=== PATIENT | female | born 1990 | race Caucasian/White ===

== ENCOUNTER 2023-04-18 19:25 | Inpatient (IN) ==
[2023-04-18] MEDS ORDERED: LORazepam 1 MG TAB SL ONE (19:50)
[2023-04-18 20:02] LABS: Appearance Urine Clear (Clear); Bacteria Urine Automated Negative (Negative); Bilirubin Urine Negative (Negative); Blood Urine 1+ (Negative); Cast Urine Automated 0 /lpf (0-5); Color Urine Yellow; Glucose Urine UA Negative (Negative); Ketones Urine Negative (Negative); Leukocyte Esterase Urine Negative (Negative); Nitrite Urine Negative (Negative); Protein Urine Negative (Negative); Specific Gravity Urine 1.007 (1.000-1.030); Urobilinogen Urine Negative (Negative); WBC Urine Automated 0 /hpf (0-5); pH Urine 6.5 (4.5-7.5)
[2023-04-18 20:06] LABS: Basophils # (auto) 0.04 K/uL (0.00-0.20); Basophils % (auto) 0.5 %; Eosinophils # (auto) 0.08 K/uL (0.00-0.50); Hematocrit (blood only) 38.6 % (37.0-47.0); Hemoglobin 13.8 g/dl (12.0-16.0); Immature Granulocytes # (auto) 0.02 K/uL (0.01-0.20); Immature Granulocytes % (auto) 0.2 %; Lymphocytes # (auto) 1.87 K/uL (1.20-3.40); Lymphocytes % (auto) 23.3 %; Mean Corpuscular Hemoglobin 31.2 pg (25.0-34.0); Mean Corpuscular Hgb Conc 35.8 g/dL (32.0-36.0); Mean Corpuscular Volume 87.1 fL (80.0-100.0); Mean Platelet Volume 9.5 fL (9.4-12.4); Monocytes # (auto) 0.53 K/uL (0.11-0.59); Monocytes % (auto) 6.6 %; Neutrophils # (auto) 5.49 K/uL (1.40-6.50); Neutrophils % (auto) 68.4 %; Platelet Count 223 K/uL (130-400); RDW Coefficient of Variation 11.9 % (11.5-14.5); RDW Standard Deviation 38.5 fL (36.4-46.3); Red Blood Count 4.43 M/uL (4.20-5.40); White Blood Count 8.03 K/ul (4.8-10.8)
[2023-04-18 20:24] LABS: Alanine Aminotransferase 10 U/L (7-52); Albumin Globulin Ratio 1.7 (0.9-2); Albumin Level 4.7 gm/dl (3.4-5.0); Alkaline Phosphatase 61 U/L (34-104); Anion Gap 9 (3-11); Aspartate Aminotransferase 14 U/L (13-39); Bilirubin,Total 0.4 mg/dl (0.2-1.0); Blood Urea Nitrogen 7 mg/dl (6-23); Calcium 9.2 mg/dl (8.6-10.3); Carbon Dioxide 26 mmol/L (21-32); Chloride 104 mmol/L (98-107); Est GFR (African American) 148.4 ml/min; Est GFR (Non-African American) 128.1 ml/min; Globulin 2.8 gm/dl (2.5-4.0); Glucose 91 mg/dl (70-99(Fasting)); Magnesium 1.9 mg/dl (1.7-2.4); Potassium 3.5 mmol/L (3.5-5.1); Sodium 139 mmol/L (136-145); Total Protein 7.5 gm/dl (6.0-8.3)
--- NOTE | 2023-04-18 20:33 | Emergency Department Note ---
Impression & Plan Involuntary jerky movements, Word finding difficulty ED Provider Note NAME: HARDEEP HAYDEN AGE: 32 SEX: Female INFORMANT: Patient ED PROVIDER(S): Tesfaye Gillis MD CHIEF COMPLAINT: Twitching and difficulty with word finding PLAN: Disposition: Admitted Outpatient prescription management: none Referral: None MEDICAL DECISION MAKING: Patient return back to emergency department due to continued symptoms. Neurology consultation performed last night recommended MRI and admission consultation. Patient initially was in agreement but then due to family obligations she left. Due to the persistence of symptoms she returned. Workup was started again. Physical examination has not changed since yesterday. She is still having difficulty with word finding. MR imaging ordered. Basic blood work ordered. CBC was unremarkable. Discussed the patient's presentation back to the emergency department with neurology, Dr. Ma. He recommended pursuing with the MRI again and will be available for consultation. Consultation was made with Dr. Yandel Cabrales of the [facility] service. Patient was evaluated in the ER for further management. Care/management discussed with: load manager Level of care consideration(s): After review of the information above and other included data, I feel the patient escalation of care to admission in order to complete workup previously recommended by neurology Triage Nursing notes: reviewed and agree them. Vital Signs: reviewed and remarkable for no significant abnormalities Additional History obtained from: none Chronic Medical/Social Conditions affecting care: none Prior/ Outside/ External records reviewed: none Differential Diagnosis: CVA, neurologic, toxicologic, infection, dehydration, metabolic abnormality, hypo/hyperglycemia, electrolyte disturbance, anemia, hypoxia, cardiac sources, intracerebral event, as well as other pathologies. Diagnostics, independently interpreted by me: EC Lead ECG performed and revealed Normal sinus rhythm at 83, normal [place], QRS normal. No elevation or depression. No PACs or PVCs Cardiac Monitoring: Cardiac monitoring ordered by me: The patient was placed on continuous cardiac monitoring and observed. It revealed a normal sinus rhythm at 91 beats per minute without ectopy or evidence of dysrhythmia. Medical decision rules: none Imaging studies: MR imaging did not reveal any evidence of stroke or demyelinating issue. I refer you to the EMR for further details. HPI: 32 year old Female arrives for evaluation of persistent difficulty with word finding and involuntary twitching. Patient was seen yesterday for the same. Neurology was consulted and admission for MRI and neurology consultation was advised. Patient initially was in agreement but then due to family obligations declined admission. She was advised to return at any time or to follow-up with her PCP on Thursday. Patient's symptoms persisted and she wanted to come back and follow through with recommendations. She notes difficulty with word finding that has persisted. She had the initial episode for about an hour 2 nights ago and that resolved. Her symptoms were present most of the day yesterday, throughout the night and today. No prior history of the same. She feels generally weak. Patient denies any trauma or pain. Pt denies LOC, headache, fevers, chills, diaphoresis, visual changes, neck pain, chest pain, breathing difficulties, nausea, vomiting, abdominal pain, back pain, melena, hematochezia, urinary symptoms, numbness, lymphadenopathy, rash, or other complaints. PAST MEDICAL HISTORY: See Below, PAST SURGICAL HISTORY: See Below, SOCIAL HISTORY: See Below, smoker HOME MEDICATIONS: See Below ALLERGIES: See Below VITALS: See Below PHYSICAL EXAMINATION: GENERAL: Awake, alert, well-appearing, in no distress HENT: Normocephalic, atraumatic. Oropharynx unremarkable. EYES: Normal conjunctiva. Sclera non-icteric. PERRLA. EOMI. NECK: Inspection normal. Non-tender. Supple. No nuchal rigidity. FROM. No masses. RESPIRATORY: Clear to auscultation. No wheezes. No rales. Normal respiratory effort. CARDIAC: Normal rate. Normal rhythm. No murmurs. No rubs. Extremities warm and well perfused. Pulses equal. No JVD. GI: Soft, non-distended. No tenderness to palpation. No rebound or guarding. No masses. RECTAL: Deferred. MUSCULOSKELETAL: Atraumatic. Chest examination reveals no tenderness. The back is symmetrical on inspection without obvious abnormality. There is no CVA tenderness to palpation. No joint edema. LOWER EXTREMITIES: Calves are equal size bilaterally and non-tender. No edema. No discoloration. NEURO: Normal sensorium. No focal sensory or motor deficits noted. Cranial nerves II through XII intact. Patient does have some difficulty with word finding. Sporadic jerking movements of the upper and lower extremities are present. No drift. SKIN: No rash or jaundice noted. PROCEDURES: none CRITICAL CARE: none OBSERVATION NOTE: none Past Med/Surg History Social History (Reviewed 04/05/23 @ 20:51 by GUSTAVO Briones Smoking Status: Smoker, status unknown Tobacco Type: Cigarettes Tobacco Cessation Education Requested by Patient: No Hx Alcohol Use: No Hx Substance Use: Yes Last Used Substance Other:: medical marijuana Preferred Language: Swedish Communication Ability: Effective Titrator Required: No Beliefs That Will Affect Care: None Current Living Situation: Spouse and Family Current Living Situation Comment: lives in apt with and 2 children Other Information That Helps Us Care for You: No Feels Safe at Home: Yes Assistive Devices: None Allergies Allergies Allergy/AdvReac Type Severity Reaction Status Date / Time bee venom protein (honey bee) Allergy Severe ANAPHYLAXIS Verified 04/18/23 20:36 Home Meds Home Medications Medication Instructions Recorded Confirmed Medical Marijuana 1 dose inhalation DIRECTED PRN 04/18/23 04/18/23 NEEDED PER PT. Results & Data (ED) Vital Signs Vital Signs - 24 hr 04/18/23 19:28 04/18/23 19:53 04/18/23 19:54 Temperature 36.5 C Temperature Source Temporal Artery Scan Pulse Rate 114 H 94 H Respiratory Rate 18 Respiratory Effort / Characteristics Non-Labored Spontaneous Respiratory Depth Normal Blood Pressure 121/83 Blood Pressure Mean 95 Pulse Oximetry 100 98 Oxygen Delivery Method Room Air Room Air Sepsis Recent Fever Within 48 Hours No Sepsis New/Unexplained Change in Mental Status No Sepsis Action Taken by Nursing No Action Required 04/18/23 20:00 04/18/23 20:30 Temperature Temperature Source Pulse Rate 91 H 79 Respiratory Rate 22 24 Respiratory Effort / Characteristics Respiratory Depth Blood Pressure 111/86 121/71 Blood Pressure Mean 94 87 Pulse Oximetry 95 97 Oxygen Delivery Method Sepsis Recent Fever Within 48 Hours Sepsis New/Unexplained Change in Mental Status Sepsis Action Taken by Nursing Laboratory Data 04/18/23 19:45 04/18/23 19:45 Lab Results 04/18/23 04/18/23 Range/Units 19:45 19:47 WBC 8.03 (4.8-10.8) K/ul RBC 4.43 (4.20-5.40) M/uL Hgb 13.8 (12.0-16.0) g/dl Hct 38.6 (37.0-47.0) % MCV 87.1 (80.0-100.0) fL MCH 31.2 (25.0-34.0) pg MCHC 35.8 (32.0-36.0) g/dL RDW Std Deviation 38.5 (36.4-46.3) fL RDW Coeff of Kalia 11.9 (11.5-14.5) % Plt Count 223 (130-400) K/uL MPV 9.5 (9.4-12.4) fL Immature Gran % (Auto) 0.2 % Neut % (Auto) 68.4 % Lymph % (Auto) 23.3 % [place] % (Auto) 6.6 % Eos % (Auto) 1.0 % Baso % (Auto) 0.5 % Neut # (Auto) 5.49 (1.40-6.50) K/uL Lymph # (Auto) 1.87 (1.20-3.40) K/uL [place] # (Auto) 0.53 (0.11-0.59) K/uL Eos # (Auto) 0.08 (0.00-0.50) K/uL Baso # (Auto) 0.04 (0.00-0.20) K/uL Immature Gran # (Auto) 0.02 (0.01-0.20) K/uL ESR 5 (0-20) mm/hr Sodium 139 (136-145) mmol/L Potassium 3.5 (3.5-5.1) mmol/L Chloride 104 (98-107) mmol/L Carbon Dioxide 26 (21-32) mmol/L Anion Gap 9 (3-11) BUN 7 (6-23) mg/dl Creatinine 0.50 L (0.6-1.2) mg/dl Est Cr Clr Drug Dosing 140.0 ml/min Est GFR ( Amer) 148.4 ml/min Est GFR (Non-Af Amer) 128.1 ml/min BUN/Creatinine Ratio 14.0 (10-20) Glucose 91 (70-99(Fasting)) mg/dl POC Glucose 103 H (70-99) mg/dl Calcium 9.2 (8.6-10.3) mg/dl Magnesium 1.9 (1.7-2.4) mg/dl Total Bilirubin 0.4 (0.2-1.0) mg/dl AST 14 (13-39) U/L ALT 10 (7-52) U/L Alkaline Phosphatase 61 (34-104) U/L Total Creatine Kinase 75 (26-192) U/L C-Reactive Protein < 0.50 (0-0.5) mg/dl Total Protein 7.5 (6.0-8.3) gm/dl Albumin 4.7 (3.4-5.0) gm/dl Globulin 2.8 (2.5-4.0) gm/dl Albumin/Globulin Ratio 1.7 (0.9-2) Vitamin B12 635 (180-914) pg/ml Folate > 22.30 (>5.38) ng/ml TSH 1.097 (0.300-4.500) uIu/ml Urine Color Yellow Urine Appearance Clear (Clear) Urine pH 6.5 (4.5-7.5) Ur Specific [place] 1.007 (1.000-1.030) Urine Protein Negative (Negative) Urine Glucose (UA) Negative (Negative) Urine Ketones Negative (Negative) Urine Blood 1+ H (Negative) Urine Nitrite Negative (Negative) Urine Bilirubin Negative (Negative) Urine Urobilinogen Negative (Negative) Ur Leukocyte Esterase Negative (Negative) Urine WBC (Auto) 0 (0-5) /hpf Urine RBC (Auto) 5-10 H (0-4) /hpf U Hyaline Cast (Auto) 0 (0-5) /lpf U Epithel Cells (Auto) 5-10 H (0-5) /lpf Urine Bacteria (Auto) Negative (Negative) Administered Medications Potassium Chloride/Sodium Chloride (Normal Saline W/20 Meq Kcl) 20 meq in 1,000 mls @ 80 mls/hr IV .[id number] [facility] Stop: 04/19/23 12:04 Last Admin: 04/19/23 00:42 Dose: 80 mls/hr Documented By: ROOPA Discontinued Medications Gadobutrol (Gadobutrol 7.5ml Vial) 6 ml IV ONCE ONE Stop: 04/18/23 21:44 Last Admin: 04/18/23 21:43 Dose: 6 ml Documented By: ALEXIA Thiamine HCl 100 mg/ Syringe 10 mls @ 2 mls/min IV NOW STA Stop: 04/18/23 23:44 Last Admin: 04/19/23 00:43 Dose: 2 mls/min Documented By: ROOPA Folic Acid 1 mg/ Syringe 10 mls @ 5 mls/min IV NOW STA Stop: 04/18/23 23:41 Last Admin: 04/19/23 00:43 Dose: 5 mls/min Documented By: ROOPA Lorazepam (Lorazepam 1 Mg Tab) 1 mg SL PRN ONE Stop: 04/18/23 19:51 Last Admin: 04/18/23 19:57 Dose: 1 mg Documented By: ANGELITA Imaging Data Radiologist's Impression: Brain MRI 04/18/23 19:38 MRI OF THE BRAIN COMBO CLINICAL HISTORY: Strokelike symptoms. Weakness. Speech difficulty. COMPARISON STUDY: CT of the brain dated 04/17/2023. TECHNIQUE: MRI of the brain was performed utilizing various T1 and T2-weighted sequences in the axial, sagittal, and coronal planes. Contrast-enhanced sequences were acquired following the administration of 6 cc of Gadavist. FINDINGS: Brain parenchyma: The brain parenchyma is normal in appearance. There is no hemorrhage or mass effect. There is no restricted diffusion to suggest acute ischemia. No enhancing mass lesion is identified on the postcontrast images. Ochoa-white matter differentiation is preserved. No extra-axial fluid collection is seen. The cerebellar tonsils are normal in configuration. Ventricles, sulci, and cisterns: Normal in configuration. Pituitary and sella: Unremarkable. Intracranial vasculature: Normal flow voids are maintained at the skull base. Orbits: The bony orbits are grossly intact. Orbital contents are normal in appearance. Sinuses and mastoids: Clear. Calvarium: Unremarkable. Cervical cord: Partially visualized cervical spinal cord is normal in morphology and signal intensity. IMPRESSION: No acute intracranial abnormality. ACT 112: Negative or not required by law. Electronically signed by: Vitor Parrish M.D. 04/18/2023 10:02 PM Discharge Plan Visit Data Chief Complaint: Neuro Symptoms/Deficit Stated Complaint: DELAYED SPEECH, TWITCHING ED Provider: Tesfaye Gillis Discharge Problem: Involuntary jerky movements, Word finding difficulty Patient Disposition: Admitted As Inpatient Discharge Instructions Interventions: ED Discharge Assessment Last Done: 04/18/23 23:00
[2023-04-18 20:38] LABS: Thyroid Stimulating Hormone 1.097 uIu/ml (0.300-4.500)
[2023-04-18 21:34] LABS: C Reactive Protein < 0.50 mg/dl (0-0.5); Creatine Kinase 75 U/L (26-192)
[2023-04-18] MEDS ORDERED: GADOBUTROL 7.5ML VIAL IV ONE (21:43)
--- NOTE | 2023-04-18 21:49 | History & Physical Report ---
Date of Service April 18, 2023 Assessment & Plan (1) Word finding difficulty: (2) Involuntary jerky movements: (3) Exposure to environmental hazard: Plan Unexplained neurologic symptoms/word finding difficulty/involuntary jerking movements/memory loss- The patient was initially seen in the emergency department on 04/17/2023, and had workup including CT head, CTA head/ neck, all of which were negative. MRI brain today with and without contrast was negative Urinalysis is negative BioFire yesterday was negative Lyme test yesterday was negative B12, folate and thyroid testing today is normal TADEO is pending Thiamine is pending Of note, urine drug screen yesterday was positive for marijuana, which patient reports she takes medical marijuana The patient will be admitted to telemetry for cardiac rhythm monitoring Neurochecks every 4 hours Patient reports exposure to black mold in her living quarters, which could explain her neurologic symptoms NSS + KCl 20 MEQ's at 80 mL/h Will likely need EEG and/or LP Admit as above, and consult neurology History of Present Illness Chief Complaint: The patient presents to the emergency department with complaint of 1-1/2 hours of muscle spasms and jerking and difficulty with talking that began 8:30 PM 2 nights ago. She reports that she felt somewhat improved later that evening, however the next day, yesterday, her symptoms returned and continue to worsen. She notes today that her memory has been getting worse. She has concerns regarding exposure to black mold where she lives, which is presently being cleaned out by her landlord. She denies any recent travels or other sick exposures. Primary Care Provider: NO PCP The patient is a 32-year-old female with no significant past medical history, who presents to the emergency department with symptoms as noted above. The patient reports symptoms of muscle jerking uncontrollably, difficulty with speech, slowed and slurred speech, and worsening memory function. Neurology recommends patient have MRI of brain, and be admitted for further workup. Allergies Allergy/AdvReac Type Severity Reaction Status Date / Time bee venom protein (honey bee) Allergy Severe ANAPHYLAXIS Verified 04/18/23 20:36 Home Medications Medication Instructions Recorded Confirmed Type Medical Marijuana 1 dose inhalation DIRECTED PRN 04/18/23 04/18/23 History NEEDED PER PT. Past Med/Surg History Social History Smoking Status: Current every day smoker Tobacco Type: Cigarettes Preferred Language: Slovak Feels Safe at Home: Yes Review of Systems Review of Systems: The patient denies chest pain, palpitations, shortness of breath, dyspnea on exertion, cough, lower extremity swelling, sore throat, fevers, chills, sweats, weight change, fatigue, nausea, vomiting, diarrhea , constipation, abdominal pain, pelvic pain, blood in urine or stool, dysuria, urinary frequency or urgency, lightheadedness, dizziness, loss of consciousness, rash, abnormal bruising or bleeding, focal weakness, numbness or tingling in arms or legs, back or neck pain, or night sweats. The review of systems is otherwise negative other than for that already noted above, and at least 10 systems have been reviewed. Physical Exam Physical Exam: The patient is awake, alert and oriented 3, speech is slowed and slightly slurred. normocephalic and atraumatic, lying in bed and in no acute distress. HEENT--PERRL, EOMI, mucous membranes and oropharynx mildly dry. Neck--supple. No JVD. No bruits. Thyroid normal, trachea midline, no adenopathy. Heart--normal S1 and S2. No murmurs, rubs or gallops. Lungs--clear bilaterally, no respiratory distress, no accessory muscle use. Abdomen--normal bowel sounds and soft. Nontender. Nondistended, no hernias or masses, no organomegaly. Extremities--no cyanosis or clubbing. No edema. There are good distal pulses b/l. Dermatologic--normal skin turgor, normal color, no abnormal lymph nodes, no rash. Neurologic--cranial nerves II through XII grossly intact. Rheumatologic--normal range of motion. Psychiatric--normal affect. Results & Data Results & Data Vital Signs (Past 12 Hours) Vital Signs Temp Pulse Resp BP Pulse Ox O2 Del Method 04/18/23 20:30 79 24 121/71 97 04/18/23 20:00 91 H 22 111/86 95 04/18/23 19:54 94 H 04/18/23 19:53 98 Room Air 04/18/23 19:28 36.5 C 114 H 18 121/83 100 Room Air Laboratory Results Laboratory Results WBC 8.03 K/ul (4.8-10.8) 04/18/23 19:45 RBC 4.43 M/uL (4.20-5.40) 04/18/23 19:45 Hgb 13.8 g/dl (12.0-16.0) 04/18/23 19:45 Hct 38.6 % (37.0-47.0) 04/18/23 19:45 MCV 87.1 fL (80.0-100.0) 04/18/23 19:45 MCH 31.2 pg (25.0-34.0) 04/18/23 19:45 MCHC 35.8 g/dL (32.0-36.0) 04/18/23 19:45 RDW Std Deviation 38.5 fL (36.4-46.3) 04/18/23 19:45 RDW Coeff of Kalia 11.9 % (11.5-14.5) 04/18/23 19:45 Plt Count 223 K/uL (130-400) 04/18/23 19:45 MPV 9.5 fL (9.4-12.4) 04/18/23 19:45 Immature Gran % (Auto) 0.2 % 04/18/23 19:45 Neut % (Auto) 68.4 % 04/18/23 19:45 Lymph % (Auto) 23.3 % 04/18/23 19:45 [place] % (Auto) 6.6 % 04/18/23 19:45 Eos % (Auto) 1.0 % 04/18/23 19:45 Baso % (Auto) 0.5 % 04/18/23 19:45 Neut # (Auto) 5.49 K/uL (1.40-6.50) 04/18/23 19:45 Lymph # (Auto) 1.87 K/uL (1.20-3.40) 04/18/23 19:45 [place] # (Auto) 0.53 K/uL (0.11-0.59) 04/18/23 19:45 Eos # (Auto) 0.08 K/uL (0.00-0.50) 04/18/23 19:45 Baso # (Auto) 0.04 K/uL (0.00-0.20) 04/18/23 19:45 Immature Gran # (Auto) 0.02 K/uL (0.01-0.20) 04/18/23 19:45 ESR 5 mm/hr (0-20) 04/18/23 19:45 Sodium 139 mmol/L (136-145) 04/18/23 19:45 Potassium 3.5 mmol/L (3.5-5.1) 04/18/23 19:45 Chloride 104 mmol/L (98-107) 04/18/23 19:45 Carbon Dioxide 26 mmol/L (21-32) 04/18/23 19:45 Anion Gap 9 (3-11) 04/18/23 19:45 BUN 7 mg/dl (6-23) 04/18/23 19:45 Creatinine 0.50 mg/dl (0.6-1.2) L 04/18/23 19:45 Est Cr Clr Drug Dosing 140.0 ml/min 04/18/23 19:45 Est GFR ( Amer) 148.4 ml/min 04/18/23 19:45 Est GFR (Non-Af Amer) 128.1 ml/min 04/18/23 19:45 BUN/Creatinine Ratio 14.0 (10-20) 04/18/23 19:45 Glucose 91 mg/dl (70-99(Fasting)) 04/18/23 19:45 POC Glucose 103 mg/dl (70-99) H 04/18/23 19:47 Calcium 9.2 mg/dl (8.6-10.3) 04/18/23 19:45 Magnesium 1.9 mg/dl (1.7-2.4) 04/18/23 19:45 Total Bilirubin 0.4 mg/dl (0.2-1.0) 04/18/23 19:45 AST 14 U/L (13-39) 04/18/23 19:45 ALT 10 U/L (7-52) 04/18/23 19:45 Alkaline Phosphatase 61 U/L (34-104) 04/18/23 19:45 Total Creatine Kinase 75 U/L (26-192) 04/18/23 19:45 C-Reactive Protein < 0.50 mg/dl (0-0.5) 04/18/23 19:45 Total Protein 7.5 gm/dl (6.0-8.3) 04/18/23 19:45 Albumin 4.7 gm/dl (3.4-5.0) 04/18/23 19:45 Globulin 2.8 gm/dl (2.5-4.0) 04/18/23 19:45 Albumin/Globulin Ratio 1.7 (0.9-2) 04/18/23 19:45 Vitamin B12 635 pg/ml (180-914) 04/18/23 19:45 Folate > 22.30 ng/ml (>5.38) 04/18/23 19:45 TSH 1.097 uIu/ml (0.300-4.500) 04/18/23 19:45 Urine Color Yellow 04/18/23 19:45 Urine Appearance Clear (Clear) 04/18/23 19:45 Urine pH 6.5 (4.5-7.5) 04/18/23 19:45 Ur Specific [place] 1.007 (1.000-1.030) 04/18/23 19:45 Urine Protein Negative (Negative) 04/18/23 19:45 Urine Glucose (UA) Negative (Negative) 04/18/23 19:45 Urine Ketones Negative (Negative) 04/18/23 19:45 Urine Blood 1+ (Negative) H 04/18/23 19:45 Urine Nitrite Negative (Negative) 04/18/23 19:45 Urine Bilirubin Negative (Negative) 04/18/23 19:45 Urine Urobilinogen Negative (Negative) 04/18/23 19:45 Ur Leukocyte Esterase Negative (Negative) 04/18/23 19:45 Urine WBC (Auto) 0 /hpf (0-5) 04/18/23 19:45 Urine RBC (Auto) 5-10 /hpf (0-4) H 04/18/23 19:45 U Hyaline Cast (Auto) 0 /lpf (0-5) 04/18/23 19:45 U Epithel Cells (Auto) 5-10 /lpf (0-5) H 04/18/23 19:45 Urine Bacteria (Auto) Negative (Negative) 04/18/23 19:45 Impressions Brain MRI 04/18/23 19:38 MRI OF THE BRAIN COMBO CLINICAL HISTORY: Strokelike symptoms. Weakness. Speech difficulty. COMPARISON STUDY: CT of the brain dated 04/17/2023. TECHNIQUE: MRI of the brain was performed utilizing various T1 and T2-weighted sequences in the axial, sagittal, and coronal planes. Contrast-enhanced sequences were acquired following the administration of 6 cc of Gadavist. FINDINGS: Brain parenchyma: The brain parenchyma is normal in appearance. There is no hemorrhage or mass effect. There is no restricted diffusion to suggest acute ischemia. No enhancing mass lesion is identified on the postcontrast images. Ochoa-white matter differentiation is preserved. No extra-axial fluid collection is seen. The cerebellar tonsils are normal in configuration. Ventricles, sulci, and cisterns: Normal in configuration. Pituitary and sella: Unremarkable. Intracranial vasculature: Normal flow voids are maintained at the skull base. Orbits: The bony orbits are grossly intact. Orbital contents are normal in appearance. Sinuses and mastoids: Clear. Calvarium: Unremarkable. Cervical cord: Partially visualized cervical spinal cord is normal in morphology and signal intensity. IMPRESSION: No acute intracranial abnormality. ACT 112: Negative or not required by law. Electronically signed by: Vitor Parrish M.D. 04/18/2023 10:02 PM Code Status & VTE Plan Code Status Full code VTE Prophylaxis Plan VTE Prophylaxis will be ordered: Yes PG Care Time/CCT Total # of Minutes Spent Total Time Spent with Patient: Total time spent is greater than 50% in coordination of care (as documented) at patient's floor/unit and/or counseling patient: Coding Level of Care Code 09567 INT INP/OBS CARE 3/75MIN Diagnoses Word finding difficulty R47.89 Involuntary jerky movements R25.8 Exposure to environmental hazard Z77.128
[2023-04-18 21:53] LABS: Folate (Folic Acid),Ser orPlas > 22.30 ng/ml (>5.38)
[2023-04-18 21:54] LABS: Vitamin B12 635 pg/ml (180-914)
--- NOTE | 2023-04-18 22:04 | Magnetic Resonance Report ---
MRI OF THE BRAIN COMBO CLINICAL HISTORY: Strokelike symptoms. Weakness. Speech difficulty. COMPARISON STUDY: CT of the brain dated 04/17/2023. TECHNIQUE: MRI of the brain was performed utilizing various T1 and T2-weighted sequences in the axial , sagittal, and coronal planes. Contrast-enhanced sequences were acquired following the administratio n of 6 cc of Gadavist. FINDINGS: Brain parenchyma: The brain parenchyma is normal in appearance. There is no hemorrhage or mass effect . There is no restricted diffusion to suggest acute ischemia. No enhancing mass lesion is identified on the postcontrast images. Ochoa-white matter differentiation is preserved. No extra-axial fluid ana ection is seen. The cerebellar tonsils are normal in configuration. Ventricles, sulci, and cisterns: Normal in configuration. Pituitary and sella: Unremarkable. Intracranial vasculature: Normal flow voids are maintained at the skull base. Orbits: The bony orbits are grossly intact. Orbital contents are normal in appearance. Sinuses and mastoids: Clear. Calvarium: Unremarkable. Cervical cord: Partially visualized cervical spinal cord is normal in morphology and signal intensity . IMPRESSION: No acute intracranial abnormality. ACT 112: Negative or not required by law. Electronically signed by: Vitor Parrish M.D. 04/18/2023 10:02 PM
[2023-04-18] MEDS ORDERED: ONDANSETRON INJ 2 MG/ML 2 ML VIAL IV PRN (23:35)
[2023-04-18] MEDS ORDERED: ACETAMINOPHEN 325 MG TAB PO PRN (23:35)
[2023-04-18] MEDS ORDERED: NSS + 20MEQ KCL 20 MEQ/1,000 ML BAG IV SCH (23:35)
[2023-04-18] MEDS ORDERED: THIAMINE HCL 100 MG in SYRINGE 9 ML IV STA (23:40)
[2023-04-18] MEDS ORDERED: FOLIC ACID 1 MG in SYRINGE 9.8 ML IV STA (23:40)
[2023-04-19 07:22] LABS: Basophils # (auto) 0.06 K/uL (0.00-0.20); Eosinophils # (auto) 0.16 K/uL (0.00-0.50); Eosinophils % (auto) 2.5 %; Hemoglobin 11.4 g/dl (12.0-16.0); Immature Granulocytes # (auto) 0.02 K/uL (0.01-0.20); Immature Granulocytes % (auto) 0.3 %; Lymphocytes % (auto) 28.6 %; Mean Corpuscular Hemoglobin 30.3 pg (25.0-34.0); Mean Corpuscular Hgb Conc 34.5 g/dL (32.0-36.0); Mean Corpuscular Volume 87.8 fL (80.0-100.0); Mean Platelet Volume 9.5 fL (9.4-12.4); Monocytes # (auto) 0.42 K/uL (0.11-0.59); Monocytes % (auto) 6.7 %; Neutrophils # (auto) 3.83 K/uL (1.40-6.50); Neutrophils % (auto) 60.9 %; Platelet Count 182 K/uL (130-400); RDW Standard Deviation 38.5 fL (36.4-46.3); Red Blood Count 3.76 M/uL (4.20-5.40); White Blood Count 6.29 K/ul (4.8-10.8)
[2023-04-19 08:21] LABS: Albumin Globulin Ratio 1.9 (0.9-2); Albumin Level 3.7 gm/dl (3.4-5.0); BUN Creatinine Ratio 11.8 (10-20); Bilirubin,Total 0.5 mg/dl (0.2-1.0); Calcium 8.5 mg/dl (8.6-10.3); Creatinine Clr Calc Pharmacy 125.2 ml/min; Est GFR (African American) 147.5 ml/min; Est GFR (Non-African American) 127.2 ml/min; Potassium 3.5 mmol/L (3.5-5.1); Total Protein 5.7 gm/dl (6.0-8.3)
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
[2023-04-19] MEDS ORDERED: ASPIRIN 81 MG ECTAB PO SCH (09:00)
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
--- NOTE | 2023-04-19 21:04 | Electrocardiogram Report ---
Test Reason : Blood Pressure : / mmHG Vent. Rate : 083 BPM Atrial Rate : 083 BPM P-R Int : 154 ms QRS Dur : 078 ms QT Int : 372 ms P-R-T Axes : 076 062 069 degrees QTc Int : 437 ms Normal sinus rhythm with sinus arrhythmia Normal ECG When compared with ECG of 17-APR-2023 19:57, (unconfirmed) No significant change was found Confirmed by Saad Louis ([id number]) on 04/19/2023 9:03:35 PM Referred By: REFERRED SELF Confirmed By:Saad Louis
--- NOTE | 2023-04-19 21:13 | Electrocardiogram Report ---
Test Reason : Blood Pressure : / mmHG Vent. Rate : 062 BPM Atrial Rate : 062 BPM P-R Int : 150 ms QRS Dur : 086 ms QT Int : 444 ms P-R-T Axes : 051 062 070 degrees QTc Int : 450 ms Normal sinus rhythm Normal ECG When compared with ECG of 18-APR-2023 19:55, (unconfirmed) No significant change was found Confirmed by Saad Louis ([id number]) on 04/19/2023 9:13:02 PM Referred By: REFERRED SELF Confirmed By:Saad Louis
[2023-04-21 16:43] LABS: Anti Nuclear Antibody Screen NEGATIVE (NEGATIVE)
[2023-04-23 14:12] LABS: Anti Cardiolipin Ab IgG <2.0 GPL-U/mL; Anti Cardiolipin Ab IgM <2.0 MPL-U/mL; B2 Glycoprotein IgG <2.0 U/mL (<20.0); B2 Glycoprotein IgM <2.0 U/mL (<20.0); PTT LA Screen 35 sec (<=40)
== END 2023-04-19 14:23 | disposition home or self-care (01) | DRG 93 ==
LOC: ED 19:25 → 2N 21:49 → SUATTDRO 21:49 → 2N 23:00